=== PATIENT | female | born 1990 | race Caucasian/White ===

== ENCOUNTER 2020-12-15 17:01 | Emergency (ER) | payer OTHER ==
[~2020-12-15] VITALS: Ht 170.2 cm; Wt 56.5 kg
[2020-12-15 18:07] LABS: BASOPHILS % (AUTO) 1 % (0-1); EOSINOPHILS % (AUTO) 3 % (1-7); LYMPHOCYTES % (AUTO) 27 % (22-44); MEAN CORPUSCULAR HEMOGLOBIN 29.6 pg (27.0-34.8); MEAN CORPUSCULAR HGB CONC 33.2 g/dL (32.4-35.8); MEAN PLATELET VOLUME 7.3 fL (7.4-10.4); MONOCYTES % (AUTO) 6 % (2-9); NEUTROPHILS % (AUTO) 63 % (42-75); PLATELET COUNT 418 x10^3/uL (130-400); RED BLOOD COUNT 4.72 x10^6/uL (3.82-5.3)
[2020-12-15 18:17] LABS: ALBUMIN 3.9 g/dL (3.4-5.0); CHLORIDE 107 mmol/L (98-107)
[2020-12-15 18:29] LABS: ALANINE AMINOTRANSFERASE 19 U/L (12-78); ALKALINE PHOSPHATASE 52 U/L (45-117); BILIRUBIN,TOTAL 0.2 mg/dL (0.2-1.0); CREATININE 0.65 mg/dL (0.55-1.02); T4 (THYROXINE) 9.5 mcg/dL (4.8-13.9); TOTAL PROTEIN 7.7 g/dL (6.4-8.2); TROPONIN I < 0.015 ng/mL (0.000-0.045)
[2020-12-15 18:31] LABS: ANION GAP 6 mmol/L (5-15)
[2020-12-15 20:39] VITALS: BP 129/71
== END 2020-12-15 20:33 ==
LOC: ED 20:22
DX: R00.2 Palpitations (principal); R42 Dizziness and giddiness; R07.89 Other chest pain
CPT/HCPCS: 36415; 71045; 80053; 83735; 84436; 84443; 84484; 84703; 85025; 93005; 99285